=== PATIENT | male | born 1990 | race Caucasian/White ===

== ENCOUNTER 2021-12-11 09:15 | Inpatient (IN) | payer OTHER ==
[~2021-12-11] VITALS: Ht 175.2 cm; Wt 83.5 kg
[2021-12-11 09:19] VITALS: BP 151/89
[2021-12-11 09:51] LABS: BILIRUBIN Negative (Negative); BLOOD Negative (Negative); CLARITY Cloudy (Clear); COLOR Yellow (Yellow); GLUCOSE Negative (Negative); KETONE Trace (Negative); LEUKO ESTERASE Trace (Negative); NITRITE Negative (Negative); SPECIFIC GRAVITY 1.025 (1.001-1.030)
[2021-12-11 09:51] LABS: BASO # 0.1 10*3/uL (0.0-0.1); BASO % 1.4 % (0.0-1.0); EOS # 0.4 10*3/uL (0.0-0.4); EOS % 4.8 % (1.0-4.0); HEMATOCRIT 43.2 % (42.0-52.0); LYMPH # 2.7 10*3/uL (1.3-4.4); LYMPH % 33.2 % (27.0-41.0); MEAN CELL VOLUME 89.3 fl (80.0-94.0); MEAN CORPUSCULAR HGB CONC 34.7 g/dl (33.0-37.0); MEAN PLATELET VOLUME 9.3 fl (9.6-12.3); MONO # 0.6 10*3/uL (0.1-1.0); MONO % 6.9 % (3.0-9.0); NEUT # 4.3 10*3/uL (2.3-7.9); NEUT % 53.4 % (47.0-73.0); PLATELET COUNT AUTOMATED 245 10*3/uL (130-400); RED BLOOD COUNT 4.84 10*6/uL (4.50-5.90); RED CELL DISTRI WIDTH 12.2 % (0-14.5)
[2021-12-11 10:05] LABS: BACTERIA 1+; CALCIUM OXALATE CRYSTALS 3+
[2021-12-11 10:06] LABS: URINE AMPHETAMINES > 1000 (1000ng/ml); URINE BARBITURATES < 200 (200ng/ml); URINE BENZODIAZEPINES < 200 (200ng/ml); URINE CANNABINOIDS (THC) > 50 (50ng/ml); URINE COCAINE < 300 (300ng/ml); URINE METHADONE < 300 (300ng/ml); URINE OPIATES < 300 (300ng/ml)
[2021-12-11 10:09] LABS: ALKALINE PHOSPHATASE 65 U/L (45-117); BUN 14 mg/dl (7-24); CHLORIDE 110 mmol/L (98-107); CREATININE 0.85 mg/dL (0.70-1.30); POTASSIUM 3.7 mmol/L (3.5-5.1); SGOT/AST 10 IU/L (3-35); SGPT/ALT 11 U/L (12-78); SODIUM 141 mmol/L (136-145)
[2021-12-11 10:09] LABS: URINE PHENCYCLIDINE < 25 (25ng/ml)
[2021-12-11 10:25] LABS: ACT PARTIAL THROMBO TIME 27.3 SECONDS (20.0-32.1)
[2021-12-11 11:18] VITALS: BP 129/64
[2021-12-11 16:00] VITALS: BP 110/60
[2021-12-11 20:00] VITALS: BP 134/75
[2021-12-12] VITALS: BP 133/66
[2021-12-12 08:00] VITALS: BP 105/60
[2021-12-12 12:00] VITALS: BP 145/91
[2021-12-12 20:00] VITALS: BP 140/88
[2021-12-13] VITALS: BP 116/71
[2021-12-13 08:00] VITALS: BP 119/58
[2021-12-13 12:00] VITALS: BP 145/84
[2021-12-13 16:00] VITALS: BP 135/86
[2021-12-13 20:00] VITALS: BP 130/64
[2021-12-14] VITALS: BP 122/67
[2021-12-14 08:00] VITALS: BP 123/64
== END 2021-12-14 09:34 | disposition home or self-care (01) | DRG 776 ==
LOC: ED 09:15 → 4E 09:45 → EDHOLD 09:45 → 4E 10:51
PROVIDERS: Emergency Medicine; ADMIT Internal Medicine; ATTEND Internal Medicine
DX: F15.20 Other stimulant dependence, uncomplicated (principal); E87.8 Other disorders of electrolyte and fluid balance, not elsewhere classified; F12.90 Cannabis use, unspecified, uncomplicated; G40.909 Epilepsy, unspecified, not intractable, without status epilepticus; F17.210 Nicotine dependence, cigarettes, uncomplicated; Z51.5 Encounter for palliative care; R82.71 Bacteriuria; R73.9 Hyperglycemia, unspecified; I10 Essential (primary) hypertension; F20.9 Schizophrenia, unspecified; F31.9 Bipolar disorder, unspecified; Z66 Do not resuscitate; Z79.899 Other long term (current) drug therapy